=== PATIENT | female | born 1930 | race Caucasian/White ===

== ENCOUNTER 2016-10-08 15:07 | Emergency (ER) | payer SELFPAY ==
[~2016-10-08] VITALS: Ht 152.4 cm; Wt 54.4 kg
--- NOTE | 2016-10-08 15:07 | NUR ---
Patient BIBA BLS, transferred to bed 5. RN evaluating patient at bedside.
[2016-10-08 15:20] VITALS: BP 188/78
--- NOTE | 2016-10-08 15:28 | NUR ---
PT BIBA DUE TO SP TRIPPED AND FALL W/ LACERATION ABOVE AND BELOW RT EYE. RT.KNEE PAIN. HX: MIGRAINE HEADACHE .DENIES N/V/D; SKIN IS PINK/WARM/DRY; AAOX4; LUNGS CLEAR BL; HR EVEN AND REGULAR; PT DENIES ANY FEVER, CP, SOB, OR COUGH AT THIS TIME; PATIENT STATES PAIN OF 9/10 AT THIS TIME; VSS; PATIENT POSITIONED FOR COMFORT; HOB ELEVATED; BEDRAILS UP X2; BED DOWN. ER MD MADE AWARE OF PT STATUS.
--- NOTE | 2016-10-08 15:28 | NUR ---
Note undone in EDM - 10/08/16 at 1533 by MEDTR[facility] PT BIBA DUE TO SP TRIPPED AND FALL. RT.KNEE PAIN. HX: MIGRAINE HEADACHE .DENIES N/V/D; SKIN IS PINK/WARM/DRY; AAOX4; LUNGS CLEAR BL; HR EVEN AND REGULAR; PT DENIES ANY FEVER, CP, SOB, OR COUGH AT THIS TIME; PATIENT STATES PAIN OF 9/10 AT THIS TIME; VSS; PATIENT POSITIONED FOR COMFORT; HOB ELEVATED; BEDRAILS UP X2; BED DOWN. ER MD MADE AWARE OF PT STATUS.
--- NOTE | 2016-10-08 15:33 | NUR ---
DR GLOVER AT [facility].
[2016-10-08] MEDS ORDERED: LIDOCAINE 1% 500 MG/50 ML VIAL INJ ONE (15:35)
[2016-10-08] MEDS ORDERED: ACETAMINOPHEN 325 MG TAB PO ONE (15:35)
--- NOTE | 2016-10-08 15:42 | NUR ---
Patient taken to CT scan/XRAY via gurney by john.
--- NOTE | 2016-10-08 16:10 | NUR ---
Note undone in EDM - 10/08/16 at 1645 by MEDDEJAH PATIENT PRESENTS TO ED WITH C/O FEVER WITH LOWER BACK PAIN X2 DAYS .DENIES N/V/D; SKIN IS PINK/WARM/DRY; AAOX4 WITH EVEN AND STEADY GAIT; LUNGS CLEAR BL; HR EVEN AND REGULAR; PT DENIES ANY FEVER, CP, SOB, OR COUGH AT THIS TIME; PATIENT STATES PAIN OF 10/10 AT THIS TIME; VSS; PATIENT POSITIONED FOR COMFORT; HOB ELEVATED; BEDRAILS UP X2; BED DOWN. ER MD MADE AWARE OF PT STATUS.
[2016-10-08] MEDS ORDERED: ONDANSETRON 4 MG ODT PO ONE (17:00)
[2016-10-08] MEDS ORDERED: MORPHINE SULFATE 2 MG/ML SYR IM ONE (17:00)
--- NOTE | 2016-10-08 17:04 | NUR ---
PT AMBULATED TO THE RESTROOM.
[2016-10-08] MEDS ORDERED: BACITRACIN OINT 500 UNITS/GM PKT TP ONE ×2 (17:25→17:31)
--- NOTE | 2016-10-08 17:30 | NUR ---
Patient discharged with v/s stable. Written and verbal after care instructions given and explained. Patient alert, oriented and verbalized understanding of instructions. Ambulatory with to car. All questions addressed prior to discharge. ID band removed. Patient advised to follow up with PMD. Rx of NORCO AND NAPROSYN given. Patient educated on indication of medication including possible reaction and side effects. Opportunity to ask questions provided and answered.
[2016-10-08 17:31] VITALS: BP 168/72
== END 2016-10-08 17:30 | disposition home or self-care (01) ==
LOC: MED 15:07
DX: S02.31XA Fracture of orbital floor, right side, initial encounter for closed fracture (principal); S01.411A Laceration without foreign body of right cheek and temporomandibular area, initial encounter; S80.01XA Contusion of right knee, initial encounter; S80.11XA Contusion of right lower leg, initial encounter; G43.909 Migraine, unspecified, not intractable, without status migrainosus; W01.0XXA Fall on same level from slipping, tripping and stumbling without subsequent striking against object, initial encounter; Y93.89 Activity, other specified; Y92.89 Other specified places as the place of occurrence of the external cause; Y99.8 Other external cause status
CPT/HCPCS: 12013; 70450; 70486; 72125; 73562; 90471; 90715; 99284; J2001; Q0092